=== PATIENT | female | born 1945 | race Caucasian/White ===

== ENCOUNTER 2017-01-06 15:58 | Emergency (ER) | payer OTHER ==
[~2017-01-06] VITALS: Ht 165.1 cm; Wt 66.2 kg
[~2017-01-06 15:58] MED LIST: ASPI81TA82 PO; CO Q60CA2 PO; SIMV20 PO; THYR15 PO; TOPR50TA PO; VITA100018 PO; ZOFR4TAB3 PO
[2017-01-06 16:04] VITALS: BP 136/67; PULSE 80; RESP 16; TEMP 98.4; O2SAT 97
[2017-01-06] MEDS ORDERED: SIMVPOW (16:23)
[2017-01-06] MEDS ORDERED: METO50TA11 PO (16:23)
[2017-01-06] MEDS ORDERED: LEVO75TA3 PO (16:23)
--- NOTE | 2017-01-06 16:56 | PD ---
HPI Chief Complaint: Laceration/Skin Injury Time Seen by Provider: 16:50 Travel History International Travel<30 days: No Contact w/Intl Traveler<30days: No Traveled to known affect area: No History of Present Illness HPI 71-year-old female presents to the emergency room for evaluation of laceration to her right fifth finger that occurred 7 hours prior to arrival. Patient tripped on the sidewalk and fell forward. She landed on her right outstretched arm and rolled to the right scraping her shoulder and right knee before striking her head on the concrete. She was unsure whether her laceration required stitches which is what brought her to the emergency room. She denies loss of consciousness or being on blood thinners. Patient denies confusion, upper or lower extremity pain, headache, nausea, or vomiting. Last tetanus was 3 years ago. PFSH Past Medical History High Cholesterol: Yes Diminished Hearing: No Hypertension: Yes Immunizations Current: Yes Thyroid Disease: Yes Tetanus Vaccination: < 5 Years Influenza Vaccination: Yes : 2 Para: 2 Past Surgical History Gynecologic Surgery: Yes (HYSTERECTOMY) Hysterectomy: Yes Social History Alcohol Use: No Tobacco Use: No (quit 1 year ago, 70 pack year hx) Substance Use: No Allergies-Medications (Allergen,Severity, Reaction): Coded Allergies: No Known Allergies (Verified , 01/06/17) Reported Meds & Prescriptions Reported Meds & Active Scripts Active Reported Metoprolol Succinate ER 24 HR (Metoprolol Succinate) 50 Mg Tab 50 Mg PO DAILY Simvastatin (Simvastain (Bulk)) 1 Pow Pow Levothyroxine (Levothyroxine Sodium) 75 Mcg Tab 75 Mcg PO DAILY Review of Systems Except as stated in HPI: all other systems reviewed are Neg Physical Exam Narrative GENERAL: Well-developed, well-nourished female in no acute distress. Afebrile. Ambulatory. SKIN: Warm and dry. Very superficial abrasions to the right shoulder, right knee, and right hand. HEAD: Atraumatic. Normocephalic. No maguire sign or raccoon eyes. EYES: PERRL, EOMI, no discharge or injection. No scleral icterus. ENT: Mucosa pink and moist. No erythema or exudates. No uvular edema. No uvular , palatal, or tonsillar deviation. Airway patent. EARS: Bilateral pinnae and external canals appear within normal limits. Bilateral tympanic membranes without erythema, dullness or perforation. No hemotympanum. NECK: Trachea midline. No JVD. No midline tenderness. Full range of motion. CARDIOVASCULAR: Regular rate and rhythm. No murmur appreciated. RESPIRATORY: No accessory muscle use. Clear to auscultation. Breath sounds equal bilaterally. No crackles, rales, wheezes, or rhonchi. NEUROLOGICAL: Awake and alert. Cranial nerves 2 through 12 intact. Motor grossly within normal limits. Normal speech. Strength 5/5 and equal in upper and lower extremities. No pronator drift in upper or lower extremities. Finger to nose test unremarkable. Data Data Last Documented VS Vital Signs Date Time Temp Pulse Resp B/P Pulse Ox O2 Delivery O2 Flow Rate FiO2 01/06/17 16:04 98.4 80 16 136/67 97 Orders MDM Medical Decision Making Medical Screen Exam Complete: Yes Emergency Medical Condition: Yes Medical Record Reviewed: Yes Differential Diagnosis Laceration versus abrasion versus contusion versus intracranial hemorrhage unlikely Narrative Course 71-year-old female presents to the emergency room for evaluation of laceration to her right fifth finger. Patient tripped and fell 7 hours prior to arrival. She struck her head on the concrete but denies loss of consciousness. She is not on blood thinners. No focal neurological deficits on exam. Patient resting comfortably. Physical exam reveals a 1 cm well approximated, superficial laceration to the finger that does not require repair. No bony tenderness to palpation of the hand, shoulder, or knee. CAT scan was initially ordered to evaluate for brain injury the patient declined. She was informed of the risks and benefits of CAT scan including the fact that there may be increased room for a bleed before it becomes symptomatic. She is alert, oriented, and has medical decision-making capacity. She would prefer to skip the CT scan. CT was canceled. Patient was discharged with wound care instructions and told to follow up with a primary care physician as needed or return to the emergency room for any concerning signs or symptoms of head injury or worse. She understands and agrees to plan. Diagnosis Primary Impression: Finger laceration Qualified Code: S61.219A - Finger laceration, initial encounter Referrals: Primary Care Physician Patient Instructions: Finger Laceration (ED), General Instructions Additional Instructions: Rest and drink plenty of fluids. Keep wounds clean and dry. Apply triple antibiotic ointment daily. Apply ice to the affected area for 20 minutes at a time, as needed for pain and swelling. Follow-up with a primary care physician. Return to the emergency room for worsening symptoms, as discussed. Disposition: 01 DISCHARGE HOME Condition: Stable Sabina Vazquez January 06, 2017 16:56 Sabina Vazquez January 06, 2017 16:56
== END 2017-01-06 17:16 | disposition home or self-care (01) ==
LOC: PHEFT 15:58
DX: S61.216A Laceration without foreign body of right little finger without damage to nail, initial encounter (principal); S40.211A Abrasion of right shoulder, initial encounter; S80.211A Abrasion, right knee, initial encounter; S60.511A Abrasion of right hand, initial encounter; E78.00 Pure hypercholesterolemia, unspecified; I10 Essential (primary) hypertension; E07.9 Disorder of thyroid, unspecified; W01.0XXA Fall on same level from slipping, tripping and stumbling without subsequent striking against object, initial encounter; Y92.480 Sidewalk as the place of occurrence of the external cause
CPT/HCPCS: 99282